=== PATIENT | male | born 1990 | race Caucasian/White ===

== ENCOUNTER → 2018-08-02 | Outpatient (CLI) | payer OTHER ==
--- NOTE | 2018-08-03 13:03 | XCELERA REPORT ---
[address] [id number] Lower Extremity Arterial Evaluation Name: MAU QUEVEDO Age: 27 yrs Gender: Male : 1990 Patient Status: Outpatient Patient Location: Study Date: 08/02/2018 01:17 PM Procedure: A color flow and duplex scan of the lower extremity arteries was performed bilaterally with velocity and waveform anaylsis. Ankle brachial indicies performed. Reason For Study: PAD Ordering Physician: ANDRES BEGUM Performed By: Jordy Ibarra Measurements and Calculations Right Left RECONCILIATION SPECIALIST PSV 100.6 140.6 cm/sec Prox PFA PSV -77.1 -108.7cm/sec Prox SFA PSV 74.6 105.5 cm/sec Mid SFA PSV -94.3 -118.0cm/sec Dist SFA PSV -70.7 -75.6 cm/sec Prox Pop A PSV 61.6 65.3 cm/sec Dist AEME PSV 33.9 48.9 cm/sec Dist PROVIDER ENROLLMENT SPECIALIST PSV 107.5 119.4 cm/sec Curtis Pedis PSV 22.0 33.4 cm/sec Right Side Arterial Evaluation Normal velocity and triphasic waveforms noted from the Common Femoral artery to the infrageniculate vessels . Ankle Brachial index 1.12. Left Side Arterial Evaluation Normal velocity and triphasic waveforms noted from the Common Femoral artery to the infrageniculate vessels . Ankle Brachial index 1.19. Interpretation Summary No hemodynamically significant lesions in the bilateral lower extremities, on duplex imaging, at rest. HETAL's are normal,bilaterally, suggesting no significant arterialcompromise. : ANDRES BEGUM > Cristino Bunn
== END ==
LOC: SP 12:53
PROVIDERS: ATTEND Student in an Organized Health Care Education/Training Program
DX: I73.9 Peripheral vascular disease, unspecified (principal)
CPT/HCPCS: 93925